=== PATIENT | female | born 1965 | race Two or more races ===

== ENCOUNTER 2022-04-09 20:06 | Emergency (ER) | payer OTHER ==
[~2022-04-09] VITALS: Ht 172.7 cm; Wt 53.5 kg
--- NOTE | 2022-04-09 20:15 | NUR ---
BIBRA 81 FROM HOME FOR SWOLLEN LIPS AND ITCHY THROAT S/P TAKING. KEFLEX FOR MASTITIS. TOOK BENADRYL 50MG PO ORACLE ERP ARCHITECT. GEN RASH NOTED. PT A/OX4. TOLERATING R/A WELL WITH NO RESP DISTRESS. CONNECTED PT TO POX AND MONITOR. SAFETY MESURES AT PLACE.
[2022-04-09] MEDS ORDERED: predniSONE 10 MG TABLET PO ONE (20:30)
[2022-04-09] MEDS ORDERED: FAMOTIDINE (20 MG) 20 MG TABLET PO ONE (20:30)
[2022-04-09] MEDS ORDERED: diphenhydrAMINE HCL 50 MG/ML VIAL IV ONE (20:30)
[2022-04-09] MEDS ORDERED: FAMOTIDINE (20 MG) 20 MG TABLET ONE (20:43)
[2022-04-09] MEDS ORDERED: diphenhydrAMINE HCL 50 MG/ML VIAL ONE (20:43)
[2022-04-09] MEDS ORDERED: predniSONE 20 MG TABLET ONE (20:43)
[2022-04-09] MEDS ORDERED: PRED50TA PO (21:16)
[2022-04-09] MEDS ORDERED: DIPH25CA83 PO (21:16)
[2022-04-09] MEDS ORDERED: FAMO-131 PO (21:16)
[2022-04-09] MEDS ORDERED: SULF1TAB48 PO (21:16)
--- NOTE | 2022-04-09 21:26 | NUR ---
Patient discharged to home in stable condition. Written and verbal after care instructions given. Patient verbalizes understanding of instruction.
[2022-04-09 21:45] VITALS: BP 131/81
== END 2022-04-09 21:26 | disposition home or self-care (01) ==
LOC: ER 20:09
DX: K13.0 Diseases of lips (principal); T36.1X5A Adverse effect of cephalosporins and other beta-lactam antibiotics, initial encounter; Z98.890 Other specified postprocedural states; Z88.1 Allergy status to other antibiotic agents; Z79.899 Other long term (current) drug therapy; Y92.89 Other specified places as the place of occurrence of the external cause
CPT/HCPCS: 99283; 96374; J1200; J7512 ×2